=== PATIENT | female | born 1950 | race Caucasian/White ===

== ENCOUNTER 2019-05-14 17:08 | Inpatient (IN) ==
[2019-05-14 17:33] LABS: BASO# 0.02 X1000 (0.0-0.2); BASO% 0.3 % (0.0-0.8); EOS# 0.13 X1000 (0.0-0.7); EOS% 1.7 % (0.0-10.0); HEMOGLOBIN 12.8 g/dL (12.0-16.0); IMM GRAN# 0.02 X1000 (0.0-0.04); IMM GRAN% 0.3 % (0.0-0.5); LYMPH# 0.71 X1000 (1.2-3.4); LYMPH% 9.4 % (20.5-51.1); MCH 26.4 PG (27-31); MCHC 32.8 g/dL (33-37); MCV 80.6 FL (81-99); MONO# 0.55 X1000 (0.11-0.59); MONO% 7.3 % (1.7-9.3); PLT 490 X1000 (130-400); RBC 4.84 XMIL (4.2-5.4); RDW 14.9 % (11.5-14.5); WBC 7.53 X1000 (4.8-10.8)
[2019-05-14 17:36] LABS: URINE SOURCE CLEAN CATCH
[2019-05-14 17:37] LABS: BILIRUBIN URINE SMALL (NEGATIVE); BLOOD URINE NEGATIVE (NEGATIVE); COLOR YELLOW; GLUCOSE URINE NEGATIVE (NEGATIVE); KETONE URINE 40 mg/dL (NEGATIVE); LEUKOCYTES URINE MODERATE (NEGATIVE); NITRITE URINE NEGATIVE (NEGATIVE); PROTEIN URINE TRACE mg/dL (NEGATIVE); SP GRAVITY URINE 1.017; TURBIDITY URINE CLEAR (CLEAR); UROBILINOGEN URINE NORMAL (NORMAL)
[2019-05-14 17:38] LABS: UR EPITHELIAL CELLS <10 /HPF (<10); URINE BACTERIA NEGATIVE /HPF; URINE RBC <10 /HPF (<10)
[2019-05-14 17:45] LABS: AGAP 14; ALB/GLOB RATIO 1.2; ALBUMIN 3.8 g/dL (3.5-5.0); ALKALINE PHOSPHATASE 621 U/L (32-104); BUN 10 mg/dL (8-22); CHLORIDE 100 mmol/L (98-107); COSMO 278; CREATININE 0.8 mg/dL (0.5-0.9); ESTIMATED GFR > 60; GLUCOSE 124 mg/dL (70-104); GOT 206 U/L (10-30); GPT 404 U/L (10-36); LIPASE 27 U/L (13-60); POTASSIUM 4.1 mmol/L (3.5-5.1); SODIUM 139 mmol/L (136-145); TCO2 25 mmol/L (25-35); TOTAL BILIRUBIN 5.96 mg/dL (0.20-1.00); TOTAL PROTEIN 7.1 g/dL (6.3-8.3)
[2019-05-14] MEDS ORDERED: NS 1,000 ML IV ONE (18:19)
[2019-05-14] MEDS ORDERED: ZOFRAN IV ONE (18:20)
[2019-05-14] MEDS ORDERED: MORPHINE IV ONE (18:21)
--- NOTE | 2019-05-14 19:16 | Diag Imaging Result Doc PS360 ---
EXAM: CT ABD/PELVIS W/IV CONT ONLY INDICATION: abd pain TECHNIQUE: This exam was performed using automated exposure control, adjustment of mA or kV according to patient size, and/or use of iterative reconstruction technique. COMPARISON: No prior dedicated abdominal CT is available for comparison. FINDINGS: The gallbladder is partially contracted. However, the wall is enhancing and thickened and there is pericholecystic inflammatory stranding consistent with cholecystitis. In addition, there is enhancement and thickening of the rothman of the common bile duct and hepatic ducts with surrounding stranding consistent with cholangitis. There is intrahepatic and extrahepatic biliary dilatation. This biliary dilatation was also noted on a CTA chest dated 05/05/2019. This could be related to an occult distal obstruction. However, no discrete obstructing lesion can be identified. No pancreatic head mass is appreciated. There is no evidence of significant pancreatic ductal dilatation. Aside from the intrahepatic biliary dilatation, the liver is grossly unremarkable. The spleen, adrenal glands, kidneys, and urinary bladder are unremarkable. There are a couple of small left ovarian cysts that both measure between 1.5 and 2 cm. The reproductive tract is grossly unremarkable as imaged, otherwise. There is moderate uncomplicated diverticulosis coli. The appendix is normal. There is a very small hiatal hernia. The remainder of the GI tract is essentially unremarkable. IMPRESSION: 1.Wall thickening and enhancement involving the gallbladder as well as the common bile duct and hepatic ducts with surrounding inflammatory stranding consistent with cholecystitis and cholangitis. 2.Intrahepatic and extrahepatic biliary dilatation. Although no well-defined obstructing lesion is identified, a distal occult obstruction cannot be excluded. 3.Other incidental/nonacute findings detailed above. Electronically signed by Amador Whitehead 05/14/2019 7:14 PM
[2019-05-14] MEDS ORDERED: ZOSYN 3.375 GM in NS 50 ML IV ONE (20:06)
--- NOTE | 2019-05-14 20:32 | PROVIDER DOCUMENTATION ---
This chart was entered by Geraldine Galvan Scribe, acting as scribe for Janet Dawson MD. HPI-Abdominal Pain/GI Problem - General Chief Complaint: Abdominal Pain Stated Complaint: ABD PAIN Time Seen by Provider: 05/14/19 18:15 Source: patient Allergies/Adverse Reactions: Patient Allergies Allergy/AdvReac Type Severity Reaction Status Date / Time alendronate sodium AdvReac Unknown Verified 05/05/19 01:03 [From Fosamax] Home Medications: Home Medication List Medication Instructions Recorded Confirmed Last Taken Type NK [No Home Medications] 05/05/19 05/05/19 Unknown History - History of Present Illness-ABD Nature of Presenting Problems: 69 y/o female presents to ED with generalized abdominal pain, N/V, weight loss, loss of appetite, and skin discoloration onset 1 week ago. Pt reports jaundice- appearing skin changes. Pt is alert and oriented. Abdominal Pain Onset Location: reports: generalized abdomen Pain Radiation: reports: no radiation Quality of Pain: reports: aching Severity in ED: reports: mild Onset/Duration: reports: 1 week ago Timing: reports: still present Activities at Onset: reports: none Exposure to sick contacts?: No Modifying Factors: improves with: nothing Associated Symptoms: reports: loss of appetite, nausea, vomiting, other (generalized abdominal pain; weight loss; skin discoloration) Last BM: unsure Dark Stools Present?: reports: none noticed Rectal Bleeding: reports: none Rectal Pain: reports: none Similar Symptoms Previously?: No Recently seen or treated by another doctor?: No Review of Systems - Adult - REVIEW OF SYSTEMS - ADULT Constitutional: reports: weight loss. denies: chills, fever Eyes: reports: no symptoms reported Ears, Nose, Mouth & Throat: reports: no symptoms reported Cardiovascular: denies: chest pain, palpitations Respiratory: denies: cough, shortness of breath Gastrointestinal: reports: abdominal pain, nausea, poor appetite, vomiting. den ies: diarrhea Genitourinary: reports: no symptoms reported Musculoskeletal: denies: back pain, joint pain Integumentary: reports: other (skiin discoloration). denies: hives Neurological: denies: dizziness/vertigo, seizure Psychiatric: reports: no symptoms reported Endocrine: reports: no symptoms reported Hematologic/Lymphatic: reports: no symptoms reported Allergic/Immunologic: reports: no symptoms reported All Other Systems: Reviewed and Negative Past History - Adult - PAST MEDICAL HISTORY-ADULT Review of Records: reports: Old Records Reviewed, Nursing Assessment Review, Medications Reviewed Major Childhood Illnesses: reports: denies history Cardiovascular: reports: hyperlipidemia Obstetrical/Gynecological: reports: other (R breast cancer) - PRIOR SURGERIES/PROCEDURES Surgical/Procedure History: reports: , breast (R mastectomy) - IMMUNIZATION STATUS Childhood Immunizations: See Nurse Assessment Flu Vaccine: See Nurse Assessment - FAMILY HISTORY Family History: reviewed, not pertinent - SOCIAL HISTORY Smoking: non-smoker Substance Use: none/never Alcohol Use Frequency: never Living Situation: family Physical Exam-General - PHYSICAL EXAM-ADULT Initial Vital Signs Reviewed: Yes - CONSTITUTIONAL General Appearance: appears well, alert, no apparent distress - EYES Eyes: PERRL/EOMI, pink conjunctivae - HEAD, EARS, NOSE, MOUTH & THROAT HENMT: normocephalic/atraumatic, moist mucous membranes, normal ENT inspection - NECK Neck: non-tender, full range of motion - RESPIRATORY Respiratory: chest non-tender, lungs clear, normal breath sounds - CARDIOVASCULAR Cardiovascular: tachycardia - GASTROINTESTINAL (ABDOMEN) Abdominal Exam: normal bowel sounds, non tender, soft - MUSCULOSKELETAL Back Exam: normal inspection, no CVA tenderness, no vertebral tenderness Extremity: normal range of motion, non-tender, normal gait - SKIN Integumentary: warm/dry, other (skin discoloration). negative: normal color - NEUROLOGIC Neurologic: grossly normal - PSYCHIATRIC Psych/Mental Status: normal mood/affect, normal thought content, normal thought process, oriented x 3 Progress - PLAN OF CARE/RESULTS Progress/Plan/Lab Results: Vital Signs - 8 hr 05/14/19 17:13 Temperature 97.9 F Pulse Rate 113 H Respiratory Rate 18 Blood Pressure 119/58 O2 Sat by Pulse Oximetry 100 Laboratory Results - last 24 hr 05/14/19 05/14/19 05/14/19 17:22 17:22 17:26 WBC 7.53 RBC 4.84 Hgb 12.8 Hct 39.0 MCV 80.6 L MCH 26.4 L MCHC 32.8 L RDW Std Deviation 14.9 H Plt Count 490 H MPV 10.0 Immature Gran % (Auto) 0.3 Neut % (Auto) 81.0 H Lymph % (Auto) 9.4 L [place] % (Auto) 7.3 Eos % (Auto) 1.7 Baso % (Auto) 0.3 Immature Gran # (Auto) 0.02 Neut # (Auto) 6.10 Lymph # (Auto) 0.71 L [place] # (Auto) 0.55 Eos # (Auto) 0.13 Baso # (Auto) 0.02 Sodium 139 Potassium 4.1 Chloride 100 Carbon Dioxide 25 Anion Gap 14 BUN 10 Creatinine 0.8 Estimated GFR/1.73 m2 > 60 BUN/Creatinine Ratio 13 Glucose 124 H Calculated Osmolality 278 Calcium 9.0 Total Bilirubin 5.96 H AST 206 H ALT 404 H Alkaline Phosphatase 621 H Total Protein 7.1 Albumin 3.8 Globulin 3.3 Albumin/Globulin Ratio 1.2 Lipase 27 Urine Source CLEAN CATCH Urine Color YELLOW Urine Turbidity CLEAR Urine pH 6.0 Ur Specific [place] 1.017 Urine Protein TRACE A Ur Glucose (Stick) NEGATIVE Ur Ketones (Stick) 40 A Urine Blood NEGATIVE Urine Nitrite NEGATIVE Urine Bilirubin SMALL A Urobilinogen Dipstick NORMAL Urine Leukocytes MODERATE A Urine WBC (Auto) 10-20 A Urine RBC (Auto) <10 U Epithel Cells (Auto) <10 Urine Bacteria (Auto) NEGATIVE Orders Category Date Time Status NPO Diet 05/14/19 17:[address] ABD/PELVIS W/IV CONT ONLY [CT] Stat Exams 05/14/19 18:21 Ordered CBC WITH DIFF [HEME] Stat Lab 05/14/19 17:22 Completed COMPREHENSIVE METABOLIC PANEL [CHEM] Stat Lab 05/14/19 17:22 Completed LIPASE [CHEM] Stat Lab 05/14/19 17:22 Completed LIPASE [CHEM] Stat Lab 05/14/19 18:22 Ordered URINALYSIS [URINALYSIS] Stat Lab 05/14/19 17:26 Completed 0.9% Sodium Chloride Inj [Ns] 1,000 ml Med 05/14/19 18:19 Active IV 999 mls/hr Morphine Med 05/14/19 18:21 Discontinued 4 mg IV NOW ONE Ondansetron [Zofran] Med 05/14/19 18:20 Discontinued 4 mg IV NOW ONE Abd Pain/OB <20 weeks Stat Oth 05/14/19 17:21 Ordered Result Diagrams: 05/14/19 17:22 05/14/19 17:22 - CT/MRI 1 CT Study: Abdomen, Pelvis Impression: See EMR Report ([facility] - [address] [facility], [address], [place] [address] [facility] - [address] [place] [address] Department of Imaging Patient: KELLY CRUZ Date: 05/14/19#: [id number] : 1950DM Status: PRE ERAcct#: [id number] Age/Sex: 69/FRoom/Bed: Loc: ED Ordering Physician: Janet Dawson MD Family Physician: Alex Damon MD Reason for Procedure: abd pain Signed EXAM: CT ABD/PELVIS W/IV CONT ONLY INDICATION: abd pain TECHNIQUE: This exam was performed using automated exposure control, adjustment of mA or kV according to patient size, and/or use of iterative reconstruction technique. COMPARISON: No prior dedicated abdominal CT is available for comparison. FINDINGS: The gallbladder is partially contracted. However, the wall is enhancing and thickened and there is pericholecystic inflammatory stranding consistent with cholecystitis. In addition, there is enhancement and thickening of the rothman of the common bile duct and hepatic ducts with surrounding stranding consistent with cholangitis. There is intrahepatic and extrahepatic biliary dilatation. This biliary dilatation was also noted on a CTA chest dated 05/05/2019. This could be related to an occult distal obstruction. However, no discrete obstructing lesion can be identified. No pancreatic head mass is appreciated. There is no evidence of significant pancreatic ductal dilatation. Aside from the intrahepatic biliary dilatation, the liver is grossly unremarkable. The spleen, adrenal glands, kidneys, and urinary bladder are unremarkable. There are a couple of small left ovarian cysts that both measure between 1.5 and 2 cm. The reproductive tract is grossly unremarkable as imaged, otherwise. There is moderate uncomplicated diverticulosis coli. The appendix is normal. There is a very small hiatal hernia. The remainder of the GI tract is essentially unremarkable. IMPRESSION: 1.Wall thickening and enhancement involving the gallbladder as well as the common bile duct and hepatic ducts with surrounding inflammatory stranding cons istent with cholecystitis and cholangitis. 2.Intrahepatic and extrahepatic biliary dilatation. Although no well-defined obstructing lesion is identified, a distal occult obstruction cannot be excluded. 3.Other incidental/nonacute findings detailed above. Electronically signed by Amador Whitehead 05/14/2019 7:14 PM 05/14/[id number] Interpreting Physician: Amador Whitehead MD Dictated Date/Time: 05/14/19 190 cc: Janet Dawson MD; Alex Damon MD) - CONSULTS/PCP/HOSPITALIST Notification #1 *Consult/PCP/Hospitalist*: Dr. Tapia Time Discussed: 20:09 Reason/Comments: Cholecystitis Consult Disposition: Admit #2 Consult: Dr. Cruz Time Discussed: 20:21 Reason/Comments: Cholecystitis Consult Disposition: Admit Departure - Departure Date of Disposition Decision: 05/14/19 Time of Disposition Decision: 20:15 DIAGNOSIS: Cholecystitis Disposition: ADMITTED INPATIENT 09 Certified Medical Emergency: Emergent Condition: Stable Referrals and Follow-Ups: Alex Damon MD [Primary Care Provider] - - Critical Care Note This patient required my direct & personal management of CC.: No Attestation - Physician/ CAROL Attestation Patient care was provided by Advanced Practice Provider:: No The physician spent face to face time with patient:: Yes Advanced Practice Provider documentation review:: Supervising physician onsite and consulted in the evaluation and care of this patient. The physician did have a face to face encounter with the patient. This chart was documented by the indicated scribe, (Geraldine Galvan Scribe) and accurately reflects the services I performed and decisions made by me, Janet Dawson MD, as attested by the provider's signature.
--- NOTE | 2019-05-14 21:21 | GENERAL SURGERY CONSULTATION ---
DATE: 05/14/2019 REQUESTING PHYSICIAN: Emergency Department. REASON FOR CONSULTATION: Concerning cholangitis. HISTORY OF PRESENT ILLNESS: A 69-year-old female who presented to the emergency department with generalized abdominal pain, nausea, vomiting and some chest pain. She has been jaundiced for a week. She came to the emergency department and had a CT scan that showed the possibility of cholecystitis and cholangitis. At the time of my evaluation, she is really not complaining of much right upper quadrant pain. She never had pain like this before. She does report weight loss of 10 pounds in the last couple of weeks. PAST MEDICAL HISTORY: Includes history of breast cancer, hyperlipidemia. PAST SURGICAL HISTORY: Includes right mastectomy, , tonsillectomy. SOCIAL HISTORY: Nonsmoker. FAMILY HISTORY: Reviewed with the patient and noncontributory. ALLERGIES: Alendronate. HOME MEDICATIONS: None. REVIEW OF SYSTEMS: A full 10-point review of systems was obtained and negative except as specified in HPI. PHYSICAL EXAMINATION: Vital signs: The patient is currently afebrile. Her vital signs have been stable. On general exam, no acute distress. Alert, interactive, jaundiced female looks stated age.HEENT: Normocephalic, atraumatic. Pupils equal, round and reactive. Mucous membranes moist. Oropharynx benign. Neck supple. Positive scleral icterus. Cardiovascular: Regular rate and rhythm. Lungs grossly clear. Abdomen is soft. Really no tenderness to palpation. Some mild discomfort in the right upper quadrant, but no peritoneal signs. Extremities: Moves all extremities. Neurologic: Grossly intact. Skin positive for jaundice. Vascular: All extremities perfused. LABORATORY DATA: White blood count 7, hematocrit 39, platelet count 490,000. There is a slight left shift, with neutrophils being 81%. Bilirubin is 5.9. AST, ALT and alkaline phosphatase are all elevated. Lipase is normal. DIAGNOSTIC DATA: CT scan independently reviewed and radiology report reviewed. She does have a dilated, thickened gallbladder and common bile duct and hepatic, but no obvious obstruction. ASSESSMENT AND PLAN: A 69-year-old female with possible cholangitis. Possible cholangitis. At this time, the patient does have radiographic signs of cholangitis and laboratory signs of some degree of common bile duct obstruction, but she is not significantly tender. Given this dilation and the abnormal finding, we will likely need to consider MRI and magnetic resonance cholangiopancreatography in the morning. Given the fact she does not look toxic, would recommend just antibiotics for right now and monitoring her. If she seems to change at all clinically we will need to consider cholecystectomy, but at this time would like to try to get more imaging to figure out the etiology behind her common bile duct dilation, because on previous imaging it had been dilated. The patient is to be admitted by the hospitalist, and we will get Gastroenterology to see her. cc: Albaro Tapia MD
--- NOTE | 2019-05-14 22:34 | HISTORY AND PHYSICAL ---
PRIMARY CARE PHYSICIAN: Dr. Damon CHIEF COMPLAINT: Abdominal pain and jaundice. HISTORY OF PRESENT ILLNESS: Ms. Farah is a 69-year-old, female, who presents to the ER today and states that she has been having abdominal pain for greater than a week now. The patient did come to the ER a week ago, and tests were performed and everything was ruled out. The patient was given 2 L of fluid at that time. The patient went to see her heart doctor yesterday and was scheduled to have a stress test in a few weeks. The patient admits to having jaundice for a couple of days now, abdominal pain, and nausea. The patient states that she has had a greater than 10-pound weight loss in the past week and a half. She states that her urine has become a dark yellow color. She denies any problems with her bowels or any bloody stools. The patient states that she has not vomited anything, she is just nauseous. The patient does have a past medical history of breast cancer in 1999, with a right mastectomy. The patient does see Dr. Lomas routinely. The patient has had a colonoscopy and EGD by Dr. Birmingham in the past where polyps were found. The patient denies any chest pain at this time. Does state she has some abdominal pain. Upon palpation, it is in the mid epigastric region. Bowel sounds are present. The patient is noted to be a little jaundiced on assessment. Labs were obtained in the ER, and the patient was noted to have a bilirubin of 5.96, AST of 206, ALT of 404, and alkaline phosphatase of 621. Lipase was normal at 27. CT of the abdomen and pelvis was done in the ER, showed patient noted to have wall thickening and enhancement involving the gallbladder, as well as the common bile duct and hepatic ducts with surrounding inflammatory stranding consistent with cholecystitis and cholangitis. Intrahepatic and extrahepatic biliary dilation, although no well- defined obstructing lesion is identified. A distal occult obstruction cannot be excluded. Dr. Tapia did see the patient in the ER. PAST MEDICAL HISTORY: Hyperlipidemia, hemorrhoids, chronic constipation. She takes MiraLAX daily. Right breast cancer with mastectomy in 1999. The patient also stated that she had a colonoscopy and EGD by Dr. Birmingham and was noted to have a polyp. PAST SURGICAL HISTORY: Mastectomy to the right breast in 1999, section, tonsillectomy, colonoscopy and EGD done by Dr. Birmingham. FAMILY HISTORY: The patient states that her grandmother had colon cancer and from a stroke. She has a mother that is still living with no medical problems, a father that is and late in life. She has a couple of brothers and sisters, and they have no medical history noted. SOCIAL HISTORY: Patient lives in [place]. She is a retired data keyer. She denies any alcohol, smoking, or drug abuse. ALLERGIES: Alendronate sodium. MEDICATIONS: The patient states she does not take any medications, except [id number] vitamins and MiraLAX daily. LABORATORY AND DIAGNOSTICS: White blood cell count 7.53, hemoglobin 12.8, hematocrit 39, platelet count is 490,000. Sodium is 139, potassium is 4.1, BUN is 10, creatinine is 0.8, estimated GFR is greater than 60, glucose is 124, calcium is 9.0. Bilirubin is 5.96, AST is 206, ALT is 404, alkaline phosphatase is 621, lipase is 27. Urinalysis shows protein, trace ketones, small amount of bilirubin, moderate leukocytes, and positive white blood cell count [address] of the abdomen and pelvis shows wall thickening and enhancement involving the gallbladder, as well as the common bile duct and hepatic ducts with surrounding inflammatory stranding consistent with cholecystitis and cholangitis. Intrahepatic and extrahepatic biliary dilation, although no well- defined obstructive lesion identified. A distal occult obstruction cannot be excluded. REVIEW OF SYSTEMS: A 12-point review of systems has been obtained. All are negative, except what is stated above in the HPI. PHYSICAL EXAMINATION: VITAL SIGNS: Temperature 97.9 degrees, heart rate 113, blood pressure 119/58, respiratory rate 18, O2 saturation is 100% on room air. Weight 150 pounds, height 5 feet 1 inch. GENERAL: This is a 69-year-old, female, who is well nourished, well developed, with no acute distress at present time. She is lying in ER stretcher. HEENT: Atraumatic, normocephalic. Pupils equal, round, reactive. Jaundice noted to sclerae. Mucous membranes are moist. NECK: Supple. No lymphadenopathy. Trachea is midline. No JVD. No thyromegaly. No bruits. CARDIOVASCULAR: Regular rate and rhythm. No murmurs, gallops, or rubs appreciated. RESPIRATORY: Lung sounds are clear with equal chest excursion. Respirations are nonlabored. No accessory muscle usage. GASTROINTESTINAL: Abdomen is soft and tender to palpation. Bowel sounds are present x4. Abdomen is nondistended. NEUROLOGIC: Cranial nerves 2-12 intact. The patient is awake, alert, and oriented, able to follow all commands appropriately. MUSCULOSKELETAL: Full distal strength noted. No abnormalities. No deformities. EXTREMITIES: No clubbing, cyanosis, or edema. DP and PT pulses are present and palpable. SKIN: Warm, dry, and intact. The patient is jaundiced. There are no rashes or bruises noted. Turgor is good. No diaphoresis. ASSESSMENT AND PLAN: 1. Cholecystitis versus cholangitis. We will admit this patient to the medical floor. We will start patient on IV antibiotics of Zosyn. Dr. Tapia has recommended to possibly do an MRI in the morning on the patient. He was consulted. We will keep her NPO at present time. We will give her IV Zofran for nausea. We are going to start her on IV fluid hydration of normal saline at 100 mL an hour. We are going to repeat her labs in the morning. 2. Abdominal pain. This is likely related to her cholecystitis versus cholangitis. We will give her morphine IV p.r.n. for pain. Any other recommendations per Dr. Tapia. 3. Hyperlipidemia. Patient does not take any medications for her cholesterol at home. She uses [id number] vitamins for this. 4. Chronic constipation. The patient does not appear to be constipated at this time per CT scan and we are holding the patient NPO at this time. We are admitting this patient to the medical floor. We are starting her on IV fluid hydration. We are starting her on IV antibiotics. We are going to hold the patient NPO at this present time, treat her pain with morphine, treat her nausea with IV Zofran. Recheck labs in the a.m. Dictated by MAINE Coles for John Farah MD I have performed a face to face diagnostic evaluation. Labs/ Imaging- reviewed. Exam- chest- clear, Abd- RUQ tenderness. A/P- Acute cholecystitis- Admit, NPO, Pain control, IV ABX, General surgery consult. Dr. Farah. cc: MD Albaro Dillon MD Jay T. Pohl, MD MTDD
[2019-05-15] MEDS: ZOSYN 3.375 GM in NS 50 ML IV SCH ×4 (02:07→21:05)
[2019-05-15] MEDS: NS 1,000 ML IV SCH ×2 (02:07→14:22)
--- NOTE | 2019-05-15 06:35 | GENERAL SURGERY PROGRESS NOTE ---
DATE: 05/15/2019 SUBJECTIVE: Patient seems to be doing okay. No major issues. No real abdominal pain. OBJECTIVE: Vital Signs: Patient is currently afebrile. Her vital signs are stable. General: No acute distress. HEENT: Normocephalic, atraumatic. Pupils equal, round, reactive to light. Mucous membranes moist. Oropharynx benign. Neck: Supple. Trachea midline. Cardiovascular: Regular rate and rhythm. Lungs: Grossly clear. Abdomen: Soft, nontender at this time, nondistended. Extremities: Moves all extremities. Neurologic: Grossly intact. Skin: Positive for jaundice. Vascular: All extremities perfused. LABORATORY: Currently pending this morning. ASSESSMENT AND PLAN: A 69-year-old female with possible cholangitis. Possible cholangitis. At this time, will continue to manage her with antibiotics. Will need to consider consulting GI this morning, but will get an MRI with MRCP to evaluate her for any kind of obstruction. She is clinically doing okay, so maybe over the weekend get her gallbladder out, but will continue to monitor closely. cc: Albaro Tapia MD
[2019-05-15 06:39] LABS: INR 0.89; PROTIME 12.7 Seconds (11.0-16.0)
[2019-05-15 06:42] LABS: BASO# 0.04 X1000 (0.0-0.2); BASO% 0.8 % (0.0-0.8); EOS# 0.18 X1000 (0.0-0.7); EOS% 3.7 % (0.0-10.0); HEMATOCRIT 35.7 % (37.0-47.0); HEMOGLOBIN 11.5 g/dL (12.0-16.0); LYMPH# 0.59 X1000 (1.2-3.4); MCH 26.4 PG (27-31); MCHC 32.2 g/dL (33-37); MCV 81.9 FL (81-99); MONO# 0.61 X1000 (0.11-0.59); MONO% 12.4 % (1.7-9.3); MPV 10.4 FL (7.4-10.4); NEUT% 71.1 % (42.2-75.2); PLT 351 X1000 (130-400); RBC 4.36 XMIL (4.2-5.4); RDW 15.2 % (11.5-14.5); WBC 4.92 X1000 (4.8-10.8)
[2019-05-15 07:06] LABS: AGAP 15; ALB/GLOB RATIO 1.1; ALBUMIN 3.3 g/dL (3.5-5.0); ALKALINE PHOSPHATASE 553 U/L (32-104); BUN 8 mg/dL (8-22); CALCIUM 8.4 mg/dL (8.8-10.2); CHLORIDE 104 mmol/L (98-107); COSMO 279; CREATININE 0.8 mg/dL (0.5-0.9); ESTIMATED GFR > 60; GLUCOSE 96 mg/dL (70-104); GOT 185 U/L (10-30); GPT 357 U/L (10-36); POTASSIUM 3.9 mmol/L (3.5-5.1); SODIUM 141 mmol/L (136-145); TCO2 22 mmol/L (25-35); TOTAL BILIRUBIN 5.02 mg/dL (0.20-1.00); TOTAL PROTEIN 6.3 g/dL (6.3-8.3)
--- NOTE | 2019-05-15 09:00 | Diag Imaging Result Doc PS360 ---
EXAM: MRI MRCP (ABD W/O CONTRAST) 05/15/2019 HISTORY: common bile duct dilation TECHNIQUE: Axial T2, water, in and out of phase T1, radial T2 with MIPS, and coronal MRCP, coronal water and in and out of phase T1. COMMENT: There is a large gallstone in the gallbladder measuring 17 mm in diameter. The distal common bile duct is a maximum of 8 mm in diameter. The common hepatic duct is between eight and 9 mm in diameter. There is dilatation of the left hepatic duct to some extent to a maximum of 10 mm. The right hepatic duct measures over 7 mm distally. There is apparent narrowing of the distal right and left ducts and the proximal portion of the common hepatic duct in comparison with the intrahepatic ducts. There are apparent filling defects from the proximal common hepatic duct through the proximal portion of the common bile duct, which probably represent stones or stone debris. There is no evidence of stones or other obstructing lesions within the pancreatic duct. IMPRESSION: Cholelithiasis and complete distal cholelithiasis. The possibility of stenosis in the distal hepatic ducts and proximal common hepatic duct cannot be excluded. Electronically signed by Josr Munoz 05/15/2019 8:57 AM
[2019-05-15] MEDS: PRILOSEC PO SCH (09:20)
[2019-05-15] MEDS: MORPHINE IV PRN (11:03)
--- NOTE | 2019-05-15 12:20 | Diag Imaging Result Doc PS360 ---
EXAM: US ABDOMEN-COMPLETE 05/15/2019 HISTORY: abdominal pain TECHNIQUE: Abdominal ultrasound COMMENT: The pancreatic head and body are normal in appearance. The visualized portions of the aorta and inferior vena cava are within normal limits. The liver is unremarkable. The gallbladder contains a large stone measuring over 2 cm in size. There is no sonographic Worley sign. There is antegrade flow in the portal vein. The kidneys are without evidence of hydronephrosis or mass. The spleen is not enlarged. There is no evidence of biliary dilatation the common bile duct measuring 6 mm. There are no abnormal fluid collections. IMPRESSION: Cholelithiasis. Electronically signed by Josr Munoz 05/15/2019 12:18 PM
[2019-05-15 12:33] LABS: URINE SOURCE CLEAN CATCH
[2019-05-15 12:44] LABS: BILIRUBIN URINE SMALL (NEGATIVE); BLOOD URINE NEGATIVE (NEGATIVE); COLOR YELLOW; GLUCOSE URINE NEGATIVE (NEGATIVE); KETONE URINE 40 mg/dL (NEGATIVE); LEUKOCYTES URINE NEGATIVE (NEGATIVE); NITRITE URINE NEGATIVE (NEGATIVE); PROTEIN URINE NEGATIVE (NEGATIVE); SP GRAVITY URINE 1.016; TURBIDITY URINE CLEAR (CLEAR); UROBILINOGEN URINE NORMAL (NORMAL)
[2019-05-15 12:46] LABS: UR EPITHELIAL CELLS <10 /HPF (<10); URINE BACTERIA NEGATIVE /HPF; URINE RBC <10 /HPF (<10); URINE WBC <10 /HPF (<10)
--- NOTE | 2019-05-15 13:19 | PROGRESS NOTE ---
DATE: 05/15/2019 SUBJECTIVE: The patient is lying comfortably in bed. At this moment she is not complaining of headache. She is not complaining of abdominal pain. We did an MRCP that showed cholelithiasis, possibility of stenosis in the distal hepatic duct and proximal common hepatic duct cannot be excluded, I communicated with the Surgery Department, Dr. Tapia, which has recommended to get a consult with Gastroenterology Department. If everything is okay probably she will have a cholecystectomy done this weekend. OBJECTIVE: Vital Signs: Temperature 97.8 degrees, pulse 108, respiratory rate 12, blood pressure 139/59, oxygen saturation 100% on room air. HEENT: Head normocephalic and atraumatic. PERRLA. Neck: Supple. No JVD. No masses. Central trachea. Chest: Clear to auscultation. No wheezing. No rales. Abdomen: Soft, nontender and nondistended. No hepatosplenomegaly. Extremities: No edema, no clubbing, no cyanosis. Neurological: The patient is alert. She is oriented. She moves all 4 extremities. LABORATORY DATA: WBC 4.9, hemoglobin 11.5, hematocrit 35.7, platelets 351,000. Sodium 141, potassium 3.9, chloride 104, bicarbonate 22, BUN 8, creatinine 0.8, glucose 96, calcium 8.4, total bilirubin 5.02, AST 185, ALT 357, alkaline phosphatase 553, albumin 3.3. ASSESSMENT AND PLAN: 1. Cholelithiasis with possible stenosis of the distal hepatic ducts and proximal common hepatic duct. The Surgery Department already evaluated this patient, probably they will do a cholecystectomy during this weekend. Allso I communicated with Dr. Tapia and he agreed to request an evaluation by the Gastroenterology Department. I will wait for recommendations. For now we will continue with the same management, she seems to be feeling better. 2. Hyperlipidemia. Continue with the same management. 3. Chronic constipation. This patient does not appear to be constipated per the CT scan. She has been placed on a liquid diet. cc: Alex Bruno MD
--- NOTE | 2019-05-15 20:50 | GASTROENTEROLOGY CONSULTATION ---
DATE: 05/15/2019 REASON FOR CONSULTATION: Abnormal LFTs, choledocholithiasis. HISTORY OF PRESENT ILLNESS: Ms. Khushi Farah is a 69-year-old woman with past medical history of hyperlipidemia; right breast cancer, status post mastectomy and remote tamoxifen use in 1999. She presents with approximately 10 days of epigastric and periumbilical abdominal cramping and tightness. The patient reports developing pain in the periumbilical area that she thought may be related to either reflux or heart attack. She was seen in the ER on 05/04, and had a chest x-ray that was negative and a CT PE protocol study that showed no evidence of pulmonary emboli. There was some evidence of biliary dilation, and cholelithiasis and choledocholithiasis could not be ruled out. She was given IV fluids and discharged home, with a plan to follow up with her PCP. She was ruled out for ACS at the time. I note her LFTs there showed a bilirubin of 0.8, AST of 77, ALT of 87, alkaline phosphatase of 167 and a CK of 245. After being discharged from the ED, the patient reports continuing to have pain up to 6/10, worse with p.o. intake with associated nausea. Over the last couple of days, she noticed jaundice and scleral icterus, as well as dark urine. She has been avoiding eating, given the pain, and has lost 10 pounds in the last week. She denies having any fevers, chills, sweats, vomiting, diarrhea, constipation, bright red blood per rectum or melena. She does not drink alcohol and denies starting any new medications. No blood thinners or NSAIDs. No family history of liver disease. She denies having any similar symptoms in the past. REVIEW OF SYSTEMS: As per HPI, otherwise 12-point review of systems is negative. PAST MEDICAL HISTORY: Includes hyperlipidemia; history of right breast cancer, in remission. PAST SURGICAL HISTORY: Right mastectomy, , tonsillectomy. MEDICATIONS: [id number] vitamins and MiraLAX. ALLERGIES: Fosamax. SOCIAL HISTORY: No smoking, alcohol or drug use. FAMILY HISTORY: Daughter has gallstones. Maternal grandmother had colorectal cancer. PHYSICAL EXAMINATION: Vital signs: Temperature 98.1 degrees, heart rate of 74, respiratory rate 20, blood pressure 126/54, O2 saturation 99% on room air. Generally the patient is awake, alert and oriented, in no acute distress. She appears comfortable. She denies any pain currently.HEENT: Scleral icterus is present. Extraocular motor is intact. Moist mucous membranes. Neck supple. No JVD or lymphadenopathy. Cardiac: Regular rate and rhythm. No murmurs, rubs or gallops. Lungs clear to auscultation bilaterally. No wheezing. Abdomen is soft, nontender, nondistended. Normoactive bowel sounds. No rebound or guarding. Negative Worley sign. Extremities: No clubbing, cyanosis or edema. Skin: Mild jaundice. Neurologic: Nonfocal. LABORATORY DATA: White count of 4.92, hemoglobin 11.5, platelets of 351,000. INR of 0.89. Sodium 141, potassium 3.9, chloride 104, bicarbonate 22, anion gap of 15, BUN of 8, creatinine 0.8, glucose of 96, total protein of 5.02, AST of 185, ALT of 357, alkaline phosphatase of 553, total protein of 6.3, albumin of 3.3. Lipase yesterday was 27. LFTs are slightly improved from yesterday. UA shows 40 ketones, small bilirubin. DIAGNOSTIC DATA: CT of the abdomen and pelvis on 05/14/2019 shows wall thickening and enhancement involving the gallbladder as well as the common bile duct, and the hepatic duct with surrounding inflammatory stranding consistent with cholecystitis and cholangitis. Intrahepatic and extrahepatic biliary dilation, although no well-defined obstructing lesion is identified. A distal occult obstruction cannot be excluded. Ultrasound of the abdomen shows cholelithiasis with a 2 cm gallstone. Negative Worley sign sonographically. Common bile duct measures 6 mm. MRCP done today shows complete distal cholelithiasis. The possibility of stenosis in the distal hepatic ducts and proximal common hepatic duct could not be excluded. There are apparent filling defects from the proximal common hepatic duct through the proximal portion of the common bile duct, which probably represent stones or stone debris. There is no evidence of stones or obstructing lesions within the pancreatic duct. There is a large gallstone in the gallbladder measuring 17 mm in diameter. The distal common bile duct measures a maximum of 8 mm in diameter. The common hepatic duct is between 8 and 9 mm in diameter. There is dilation of the left hepatic duct to some extent, to a maximum of 10 mm. The right hepatic duct measures over 7 mm distally. There is apparent narrowing of the distal right and left ducts and the proximal portion of the common hepatic duct in comparison with the intrahepatic ducts. ASSESSMENT AND PLAN: Ms. Khushi Farah is a 69-year-old woman with no significant past medical history except for remote breast cancer, who presented with evidence of acute cholecystitis and cholangitis, with intrahepatic and extrahepatic biliary dilation. Of note, on reviewing the magnetic resonance cholangiopancreatography there was also some evidence of narrowing within the hepatic ducts on the left and right, and filling defect in the common hepatic duct to the common bile duct, concerning for possible stones and debris. The patient was seen by Surgery, who felt that she did not need urgent cholecystectomy at this time, given her benign abdominal exam and hemodynamic stability. Her white count is normal. She is on antibiotics with Zosyn. She is tolerating a clear liquid diet. She was started on a proton pump inhibitor as well and analgesics for pain control as well as antiemetics. I am concerned for the narrowing in the hepatic ducts distally, which raises a concern for possible primary sclerosing cholangitis; however, her alkaline phosphatase is high but was pretty low when she presented a week and half ago, and her liver function test pattern appears to be more of a mixed pattern, primarily cholestatic. The rapid progression does not appear to be consistent with primary sclerosing cholangitis and more likely choledocholithiasis. I will send off a CA19-9 to see if this is elevated. We discussed keeping her on a clear liquid diet through the weekend and planning for possible endoscopic retrograde cholangiopancreatography early next week with Dr. Sherman. In the meantime, we will keep her on antibiotics. We can probably advance her to a full liquid diet as tolerated, and monitor her closely over the weekend for any signs of cholangitis or development of acute cholecystitis. Other issues: She has some mild anemia that is borderline microcytic and mildly decreased bicarbonate. She is on normal saline 100 mL/h. I would continue to trend her CBC and liver function tests daily. There are no signs of pancreatitis. Thank you for this consult. We will follow with you. Please call with any questions or concerns.
[2019-05-16] MEDS: ZOSYN 3.375 GM in NS 50 ML IV SCH ×4 (03:41→20:36)
[2019-05-16] MEDS: ZOFRAN IV PRN (04:04)
[2019-05-16] MEDS: PRILOSEC PO SCH (06:00)
[2019-05-16 06:36] LABS: BASO# 0.03 X1000 (0.0-0.2); BASO% 0.7 % (0.0-0.8); EOS% 4.4 % (0.0-10.0); HEMATOCRIT 37.5 % (37.0-47.0); HEMOGLOBIN 11.8 g/dL (12.0-16.0); IMM GRAN# 0.04 X1000 (0.0-0.04); IMM GRAN% 0.9 % (0.0-0.5); LYMPH# 0.69 X1000 (1.2-3.4); LYMPH% 15.1 % (20.5-51.1); MCH 26.3 PG (27-31); MCHC 31.5 g/dL (33-37); MCV 83.7 FL (81-99); MONO# 0.31 X1000 (0.11-0.59); MONO% 6.8 % (1.7-9.3); MPV 10.2 FL (7.4-10.4); NEUT% 72.1 % (42.2-75.2); PLT 361 X1000 (130-400); RBC 4.48 XMIL (4.2-5.4); RDW 15.4 % (11.5-14.5); WBC 4.57 X1000 (4.8-10.8)
[2019-05-16 06:55] LABS: AGAP 13; ALB/GLOB RATIO 1.1; ALBUMIN 3.3 g/dL (3.5-5.0); ALKALINE PHOSPHATASE 521 U/L (32-104); BUN 7 mg/dL (8-22); CALCIUM 8.1 mg/dL (8.8-10.2); CHLORIDE 106 mmol/L (98-107); COSMO 282; CREATININE 0.8 mg/dL (0.5-0.9); ESTIMATED GFR > 60; GLUCOSE 123 mg/dL (70-104); GOT 144 U/L (10-30); GPT 328 U/L (10-36); POTASSIUM 3.4 mmol/L (3.5-5.1); SODIUM 142 mmol/L (136-145); TCO2 23 mmol/L (25-35); TOTAL BILIRUBIN 2.62 mg/dL (0.20-1.00); TOTAL PROTEIN 6.3 g/dL (6.3-8.3)
--- NOTE | 2019-05-16 13:32 | GENERAL SURGERY PROGRESS NOTE ---
DATE: 05/16/2019 SUBJECTIVE: The patient is doing well. She denies abdominal pain, nausea, or vomiting at this time. OBJECTIVE: Vital Signs: She is afebrile. Vital signs are stable. General: She is awake, alert, oriented x3. No acute distress. Gastrointestinal: Soft, nontender, nondistended. LABORATORY DATA: CBC reviewed and unremarkable. Complete metabolic profile reviewed and notable for total bilirubin 2.6, AST 144, ALT 328, alkaline phosphatase 521. ASSESSMENT AND PLAN: A 69-year-old female with elevated liver function tests and recent history of abdominal pain and nausea. Her imaging is concerning for biliary dilation and possibly stricture or stones. At this point, Dr. Stein informs me that an ERCP is planned early next week and she will likely require having her gallbladder removed pending the ERCP results. cc: Keenan Ma MD
[2019-05-16] MEDS: NS 1,000 ML IV SCH ×2 (13:58→15:05)
--- NOTE | 2019-05-16 15:07 | PROGRESS NOTE ---
DATE: 05/16/2019 SUBJECTIVE: This morning Ms. Farah refers to be doing a lot better. She has no abdominal pain, no nausea, no vomiting, and she thinks her skin yellowness is getting better. OBJECTIVE: Vital signs: Blood pressure is 110/42, pulse of 78, respirations 24, temperature 97.4 degrees. General exam: Ms. Farah is a 69-year-old female. She is in bed, no distress. HEENT: Mucosa is pink and moist. Anicteric. Acyanotic. Neck: Supple. Chest: Good air entry bilaterally. There were no crepitations, no rhonchi. Cardiovascular: Regular rate and rhythm. Abdomen: Soft, nontender. Bowel sounds present. Extremities: No pedal edema. SOAPSTONER: Patient is awake, alert, oriented. LABORATORY DATA: WBC is 4.57, hemoglobin is 11.8, platelet count of 361. Chemistry is also reviewed. Total bilirubin is down to 2.62, AST is 144, ALT is 338, alkaline phosphatase is 521. X-RAYS: The patient's imaging studies have all been reviewed. ASSESSMENT: 1. Cholelithiasis with possible biliary colic on presentation. 2. Acute cholecystitis with possible cholangitis. 3. Intra and extrahepatic biliary dilation of unclear etiology. Patient is pending an endoscopic retrograde cholangiopancreatography on Saturday. 4. Dyslipidemia. 5. Chronic constipation. PLAN: For now, we will continue with the current IV antibiotics, hydration, and be pending the ERCP on Saturday. The patient has been seen by Surgery and GI team as well. cc: Michael Nascimento MD
--- NOTE | 2019-05-16 23:53 | PROVIDER PROGRESS NOTE ---
Progress Note S: No acute overnight events. Patient tolerating regular diet. No abdominal pain, N/V/F, CP, SOB. O: Last Vital Signs Temp 97.5 F L 05/17/19 00:00 Pulse 71 05/17/19 00:00 Resp 16 05/17/19 00:00 BP 124/55 05/17/19 00:00 Pulse Ox 99 05/17/19 00:00 Height 5 ft 1 in Weight 151 lb 6 oz GEN: awake, alert, NAD HEENT: scleral icterus present, MMM NECK: supple, no JVD PULM: CTAB, no wheezing CV: RRR, no murmurs ABD: soft NT/ND, NABS, no rebound or guarding EXT: no cce NEURO: nonfocal LABS: 05/16/19 05/16/19 06:15 06:15 WBC 4.57 L Hgb 11.8 L Plt Count 361 Sodium 142 Potassium 3.4 L Chloride 106 Carbon Dioxide 23 L BUN 7 L Creatinine 0.8 Glucose 123 H Calcium 8.1 L Total Bilirubin 2.62 H AST 144 H ALT 328 H Alkaline Phosphatase 521 H Total Protein 6.3 Albumin 3.3 L ASSESSMENT AND PLAN: Ms. Khushi Farah is a 69-year-old woman with h/o remote breast cancer, who presented with jaundice and periumbilical pain found to have evidence of acute cholecystitis and cholangitis on imaging with MRCP showing intrahepatic and extrahepatic biliary dilation; narrowing within the hepatic ducts on the left and right; and filling defect in the common hepatic duct to the common bile duct concerning for possible stones and debris. She is on empiric zosyn. Her symptoms have resolved and LFTs are downtrending. Exam is benign other than jaundice. I am less concerned about PSC. # Probable proximal CBD choledocholithiasis: on zosyn; will discuss timing of possible ERCP with Dr. Sherman tomorrow # Abnormal LFTs: from above; trending # Acute cholecystitis on imaging: surgery following; on abx # Anemia: stable Will follow with you. Please call with questions
[2019-05-17] MEDS: ZOSYN 3.375 GM in NS 50 ML IV SCH ×4 (01:51→21:05)
[2019-05-17 06:44] LABS: INR 0.88; PROTIME 12.7 Seconds (11.0-16.0)
[2019-05-17 07:01] LABS: AGAP 14; ALB/GLOB RATIO 1.1; ALBUMIN 3.4 g/dL (3.5-5.0); ALKALINE PHOSPHATASE 449 U/L (32-104); BUN 5 mg/dL (8-22); CALCIUM 8.8 mg/dL (8.8-10.2); CHLORIDE 108 mmol/L (98-107); COSMO 287; CREATININE 0.9 mg/dL (0.5-0.9); ESTIMATED GFR > 60; GLUCOSE 113 mg/dL (70-104); GOT 148 U/L (10-30); GPT 322 U/L (10-36); POTASSIUM 3.7 mmol/L (3.5-5.1); SODIUM 145 mmol/L (136-145); TCO2 23 mmol/L (25-35); TOTAL BILIRUBIN 1.88 mg/dL (0.20-1.00); TOTAL PROTEIN 6.4 g/dL (6.3-8.3)
[2019-05-17] MEDS: PRILOSEC PO SCH (09:13)
[2019-05-17] MEDS: NS 1,000 ML IV SCH ×3 (09:14→23:27)
--- NOTE | 2019-05-17 13:09 | GENERAL SURGERY PROGRESS NOTE ---
DATE: 05/17/2019 SUBJECTIVE: The patient is doing okay today. No severe pain, nausea, or vomiting. OBJECTIVE: She is afebrile. Vital signs are stable.General: She is awake, alert, oriented x4. No acute distress. CV: Regular rate and rhythm. Respiratory: Bilateral breath sounds. No work of breathing. Gastrointestinal: Soft, nontender, nondistended. LABORATORY: Metabolic profile reviewed and notable for total bilirubin 1.9, AST 148, ALT 322, alkaline phosphatase 449. IMAGING: I went back and reviewed her abdominal pelvis CT scan, abdominal ultrasound, and MRCP. She is noted to have an enhancing, thickened gallbladder wall as well as dilated intra and extrahepatic bile ducts. There is some possible stricture in the hepatic ducts. There are also stones and filling defects within the gallbladder and bile ducts. This is concerning for acute cholecystitis, choledocholithiasis. ASSESSMENT AND PLAN: A 69-year-old female with cholelithiasis, choledocholithiasis, and possible acute cholecystitis. Overall, her liver function tests are trending down and Dr. Stein does not believe ERCP is mandatory at this point, but has recommended proceeding with cholecystectomy and cholangiogram first. I discussed this with her including the risks and benefits of laparoscopic, possible conversion to open procedure, the risks of bleeding, infection, injury to surrounding organs such as the bile duct or intestines, and other imponderables. She understands and agrees to proceed. We will see if we can work her in to the schedule today versus tomorrow with Dr. Tapia. cc: Keenan Ma MD
--- NOTE | 2019-05-17 13:23 | PROGRESS NOTE ---
DATE: 05/17/2019 SUBJECTIVE: Today Ms. Farah refers to be doing well. No new complaints. No abdominal pain. There is a plan for gallbladder removal today. OBJECTIVE: Vital signs: Blood pressure is 143/56, pulse of 80, respirations 20, temperature 98.9 degrees. General: Ms. Farah is a 69-year-old female. She is in bed. No distress. Mucosa is pink and moist. Anicteric. Acyanotic. Neck: Supple. Chest: Clear. Cardiovascular: Regular rate and rhythm. Abdomen: Soft, nontender. Bowel sounds present. Extremities: No pedal edema. MD PHYSICIAN DERMATOLOGIST: Patient is awake, alert, oriented. No focal neurological deficit. LABORATORY DATA: Chemistry is reviewed. LFTs continues to be trending down. ASSESSMENT: 1. Cholelithiasis with biliary colic on presentation, improved. 2. Acute cholecystitis with possible cholangitis. There is a plan for gallbladder removal hopefully today with intraoperative cholangiogram. 3. Intra and extrahepatic biliary dilation of unclear etiology. 4. Dyslipidemia. 5. Chronic constipation, improved. In general, I think Ms. Farah is doing a lot better. She has continued to be on IV antibiotics. She is afebrile. Liver function tests are trending down. Abdomen is benign. There is a plan for gallbladder removal today. We will follow up with the report. cc: Michael Nascimento MD MTDD
[2019-05-17] MEDS ORDERED: STERILE WATER INJ. ONE (17:28)
[2019-05-17] MEDS ORDERED: NORCURON ONE (17:28)
[2019-05-17] MEDS ORDERED: FENTANYL ONE (17:29)
[2019-05-17] MEDS ORDERED: XYLOCAINE-MPF 2% ONE (17:30)
[2019-05-17] MEDS ORDERED: QUELICIN (DOSE) ONE (17:30)
[2019-05-17] MEDS ORDERED: DIPRIVAN 1% ONE (17:30)
[2019-05-17] MEDS ORDERED: MARCAINE 0.25% PF/EPI 1:200,000 ONE (18:48)
[2019-05-17] MEDS ORDERED: SODIUM CHLORIDE 0.9% ONE (18:48)
[2019-05-17] MEDS ORDERED: LR 1,000 ML ONE (18:48)
[2019-05-17] MEDS ORDERED: NEOSTIGMINE ONE (19:36)
--- NOTE | 2019-05-17 19:49 | Diag Imaging Result Doc PS360 ---
EXAM: OPERATIVE CHOLANGIOGRAM 05/17/2019 HISTORY: cholecystitis TECHNIQUE: Intraoperative cholangiogram, two views COMMENT: There are filling defects in the distal common bile duct. There is dilatation of the common bile duct and intrahepatic ducts. There are stones or stone debris in the distal common bile duct. IMPRESSION: Retained debris and/or stones. Electronically signed by Josr Munoz 05/17/2019 7:47 PM
[2019-05-17] MEDS ORDERED: LOPRESSOR ONE (20:04)
[2019-05-17] MEDS ORDERED: APRESOLINE ONE (20:04)
[2019-05-17] MEDS: DILAUDID ONE ×2 (20:33→20:39)
[2019-05-17] MEDS ORDERED: NS 0 ML ONE (20:49)
[2019-05-17] MEDS ORDERED: NORCO-10 PO ONE (21:06)
--- NOTE | 2019-05-17 22:00 | PROVIDER PROGRESS NOTE ---
Progress Note S: No acute overnight events. Afebrile. No complaints. Patient underwent lap ortiz today with Dr. Ma. IOC positive for stones. O: Last Vital Signs Temp 98.0 F 05/17/19 19:53 Pulse 92 H 05/17/19 21:15 Resp 17 05/17/19 20:53 BP 130/62 05/17/19 21:15 Pulse Ox 95 05/17/19 21:15 Height 5 ft 1 in Weight 151 lb 6 oz GEN: awake, alert, NAD HEENT: scleral icterus present, MMM NECK: supple, no JVD PULM: CTAB, no wheezing CV: RRR, no murmurs ABD: soft NT/ND, NABS, no rebound or guarding EXT: no cce NEURO: nonfocal LABS: 05/17/19 05/17/19 06:07 06:07 INR 0.88 Sodium 145 Potassium 3.7 Chloride 108 H Carbon Dioxide 23 L BUN 5 L Creatinine 0.9 Total Bilirubin 1.88 H AST 148 H ALT 322 H Alkaline Phosphatase 449 H Total Protein 6.4 Albumin 3.4 L EXAM: OPERATIVE CHOLANGIOGRAM 05/17/2019 HISTORY: cholecystitis TECHNIQUE: Intraoperative cholangiogram, two views COMMENT: There are filling defects in the distal common bile duct. There is dilatation of the common bile duct and intrahepatic ducts. There are stones or stone debris in the distal common bile duct. IMPRESSION: Retained debris and/or stones. ASSESSMENT AND PLAN: Ms. Khushi Farah is a 69-year-old woman with h/o remote breast cancer, who presented with jaundice and periumbilical pain found to have evidence of acute cholecystitis and cholangitis on imaging with MRCP showing intrahepatic and extrahepatic biliary dilation; narrowing within the hepatic ducts on the left and right; and filling defect in the common hepatic duct to the common bile duct concerning for possible stones and debris. She is on empiric zosyn. POD #0 from lap ortiz. Plan for diagnostic and therapeutic ERCP tomorrow with Dr. Sherman. # Choledocholithiasis: on zosyn; NPO after MN for ERCP with Dr. Sherman tomorrow # Abnormal LFTs: from above; improving; continue to trend daily # Acute cholecystitis on imaging: surgery following; POD #0 for lap ortiz # Anemia: stable Will follow with you. Please call with questions
--- NOTE | 2019-05-17 22:07 | OPERATIVE NOTE ---
PROCEDURE DATE: 05/17/2019 PREOPERATIVE DIAGNOSIS: Acute cholecystitis and choledocholithiasis. POSTOPERATIVE DIAGNOSIS: Acute cholecystitis and choledocholithiasis. PROCEDURE: Laparoscopic cholecystectomy with operative cholangiogram. SURGEON: Keenan Ma MD. ANESTHESIA: General. ESTIMATED BLOOD LOSS: 10 mL. COMPLICATIONS: None apparent. SPECIMENS: Gallbladder. FINDINGS: The gallbladder appeared to be inflamed with a large stone in it. The cholangiogram revealed filling of the proximal hepatic ducts and common bile duct. They were dilated in the distal common bile duct. There were irregular filling defects which could represent stones or debris. There was some contrast passing through this area into the duodenum. TECHNIQUE: The patient was brought to the operating room and placed supine on the table. General anesthesia was induced. She was prepped and draped in usual sterile fashion. 0.25% Marcaine with epinephrine was used to anesthetize our incisions. An 11 mm incision was made above the umbilicus. The fascia was exposed and incised sharply. Entry into the peritoneal cavity was obtained under direct vision with the Optiview device. Pneumoperitoneum was established. The camera was inserted. There was no evidence of injury to underlying structures. She was placed in reverse Trendelenburg and left rotation. Three 5 mm incision ports were placed across the epigastric right upper quadrant under direct vision per usual routine. The dome of the gallbladder was grasped by the certified medical technician assistant with an Allis clamp and lifted up superiorly. The triangle of Calot was then dissected out with the [place] forceps and hook cautery until the critical view was obtained. The gallbladder liver junction was seen. There were only 2 structures entering the gallbladder the cystic duct and cystic artery. The artery was clipped proximally and distally and incised between with scissors. A clip was placed on the distal cystic duct. A ductotomy was made proximal to this with scissors. The 14-gauge Angiocath was passed through the right upper quadrant. The Taut cholangiogram catheter was passed through this into the cystic duct and held in place with a clip. The cholangiogram was performed with findings as noted above. The clip, catheter, and Angiocath were removed. Two clips were placed on the proximal cystic duct. It was divided distal to these with scissors. The gallbladder was removed from the liver bed using hook cautery obtaining hemostasis along the way. After it was removed I checked for any bleeding. There was no further bleeding. I suctioned out the old blood and irrigation. The gallbladder was then brought up into the umbilical port site after being placed into a EndoCatch bag. The ports were removed. The abdomen was desufflated. The skin and fascia at the umbilicus were incised a few more millimeters to allow removal of the gallbladder. I then closed the umbilical fascia with a running 0 Vicryl. The skin was closed with a running 4-0 subcuticular Monocryl and Steri-Strips. There were no apparent complications. She was awakened in stable condition and transferred to the recovery room. cc: Keenan Ma MD
[2019-05-17] MEDS: ZOFRAN IV PRN (22:16)
[2019-05-17] MEDS: MORPHINE IV PRN (23:27)
[2019-05-18] MEDS: ZOSYN 3.375 GM in NS 50 ML IV SCH ×4 (01:39→21:20)
[2019-05-18] MEDS: PRILOSEC PO SCH (06:58)
[2019-05-18] MEDS: NS 1,000 ML IV SCH ×2 (10:26→20:28)
[2019-05-18] MEDS ORDERED: LUBRIFRESH PM OPH OINTMENT ONE (14:02)
[2019-05-18] MEDS ORDERED: DIPRIVAN 1% ONE ×2 (14:24→15:33)
--- NOTE | 2019-05-18 14:30 | PROGRESS NOTE ---
DATE: 05/18/2019 SUBJECTIVE: This morning Ms. Farah refers to be doing okay. Denies any abdominal pain. She is pending ERCP by Dr. Sherman. OBJECTIVE: Vitals: Blood pressure is 144/60, pulse of 97, respiration is 15, temperature 99 degrees. General: Ms. Farah 69-year-old female she was sitting up on the potty chair no distress. Mucosa is pink and moist. Anicteric. Acyanotic. Physical exam is unremarkable except for mild icteric. Chest: Clear to auscultation. Extremities: No pedal edema. [employer]ION ORGANIZER: Patient was awake, alert, oriented. No focal neurological deficit. LABORATORY DATA: AST and ALT continues to be minimally elevated. Alkaline phosphatase and total bilirubin are trending down. Patient CA-19-9 is 33 which is less than the 35. Surgery report from yesterday shows a laparoscopic cholecystectomy with intraoperative cholangiogram was done. There was some irregular filling defects in the CBD. ASSESSMENT: 1. Cholelithiasis with biliary colic on presentation improved. 2. Acute cholecystitis with cholangitis. Patient is status post laparoscopic cholecystectomy with intraoperative cholangiogram which is abnormal so there is a plan for ERCP. 3. Intra and extrahepatic biliary dilation most likely due to distal common bile duct obstruction by stone. 4. Dyslipidemia. 5. Chronic constipation improved . So in general I think Ms. Farah is doing well. She tolerated laparoscopic cholecystectomy yesterday no complications. She is pending ERCP today. cc: Michael Nascimento MD MTDD
[2019-05-18] MEDS ORDERED: XYLOCAINE-MPF 2% ONE (15:38)
--- NOTE | 2019-05-18 16:08 | Diag Imaging Result Doc PS360 ---
ERCP-BILIARY AND PANCREATIC - 05/17/2019 INDICATION: Pancreatic head mass and Jaundice TECHNIQUE: The exam was performed by the patient's endoscopist. Four images were obtained. COMPARISON: Operative cholangiogram from earlier 05/17/2019 FINDINGS: Contrast injection of the common bile duct demonstrated filling defects distally and common bile duct dilation. It appears that a sweep was performed. It also appears that the filling defects were removed. A common bile duct stent was placed in good position. IMPRESSION: No complication. Electronically signed by Vincenzo Smith 05/18/2019 4:06 PM
--- NOTE | 2019-05-18 16:42 | OPERATIVE NOTE ---
PROCEDURE DATE : 05/18/2019 PROCEDURE: 1. Endoscopic retrograde cholangiopancreatography. 2. Endoscopic retrograde cholangiopancreatography with sphincterotomy. 3. Stone removal with basket. 4. Stent placement. PREOPERATIVE DIAGNOSIS: Common bile duct stone. POSTOPERATIVE DIAGNOSIS: Multiple small compact stones, compacted in the distal common bile duct, removed with basket and lavaged. DESCRIPTION OF PROCEDURE: After informed consent was obtained and adequate intravenous sedation by Anesthesia, the scope introduced into the esophagus, stomach, and duodenum. The ampulla appears normal. Cholangiogram revealed 2 large areas of stones/debris. At this point, wide sphincterotomy was done and they were removed with a basket. The rest of the common bile duct was lavaged with saline and then the bile duct is clear. At this point, a standard 10-Nepali 5 cm stent was deployed. The scope was withdrawn. The patient tolerated the procedure well without any immediate complications. I need to see her in the office in 2 to 3 weeks to remove the stent. cc: MD Keenan Lewis MD
[2019-05-18] MEDS: ZOFRAN IV PRN (16:55)
[2019-05-18] MEDS: MORPHINE IV PRN (16:55)
--- NOTE | 2019-05-18 19:06 | GENERAL SURGERY PROGRESS NOTE ---
DATE: 05/18/2019 SUBJECTIVE: The patient is doing okay today. She is sore, but no severe pain. No nausea or vomiting. OBJECTIVE: Vital Signs: She is afebrile. Vital signs are stable. General: She is awake, alert, and oriented x3. No acute distress. Gastrointestinal: Soft, mildly tender, nondistended. Incision is clean, dry, and intact. LABORATORY: Total bilirubin 1.88, AST 148, ALT 322, alkaline phosphatase 449. ASSESSMENT AND PLAN: A 69-year-old female postoperative day 1 laparoscopic cholecystectomy. She likely has residual common bile duct stones. We are planning endoscopic retrograde cholangiopancreatography today. cc: Keenan Ma MD
[2019-05-19] MEDS: MORPHINE IV PRN ×2 (00:16→04:09)
[2019-05-19] MEDS: NS 1,000 ML IV SCH ×2 (00:17→06:26)
[2019-05-19] MEDS ORDERED: CHLORASEPTIC SPRAY MT PRN (00:53)
[2019-05-19] MEDS: ZOSYN 3.375 GM in NS 50 ML IV SCH ×2 (03:30→09:57)
[2019-05-19] MEDS: PRILOSEC PO SCH ×2 (05:51→06:27)
[2019-05-19 06:15] LABS: ALB/GLOB RATIO 1.1; ALBUMIN 3.1 g/dL (3.5-5.0); DIRECT BILIRUBIN 0.6 mg/dL (0.00-0.20); TOTAL BILIRUBIN 1.46 mg/dL (0.20-1.00); TOTAL PROTEIN 5.9 g/dL (6.3-8.3)
[2019-05-19 11:21] VITALS: BP 125/55
--- NOTE | 2019-05-19 21:16 | DISCHARGE SUMMARY ---
ADMISSION DATE: 05/14/2019 DISCHARGE DATE: 05/19/2019 DISPOSITION: Home. FOLLOWUP: 1. Alex Norwood. 2. Dr. Britt. 3. Dr. Sherman. CONSULTATION: 1. Surgery was consulted. Patient was seen by Dr. Tapia followed up by Dr. Ma. 2. GI was consulted. Patient was seen by Dr. Stein and Dr. Barrett. INVASIVE PROCEDURES: 1. A laparoscopic cholecystectomy with operative cholangiogram was done by Dr. Ma. 2. ERCP with sphincterectomy, stone removal with basket and stent placement was done by Dr. Sherman. ADMISSION DIAGNOSIS: 1. Cholecystitis versus cholangitis. 2. Abdominal pain. 3. Hyperlipidemia. 4. Chronic constipation. DIAGNOSIS AT THE TIME OF DISCHARGE: 1. Cholelithiasis with biliary colic on presentation. 2. Acute cholecystitis with cholangitis. ASSESSMENT A TIME OF DISCHARGE: 1. Acute calculous cholecystitis. 2. Cholelithiasis with choledocholithiasis associated with cholangitis. Patient is status post ERCP with stone removal and stent placement. 3. Dyslipidemia. 4. Chronic constipation. DISCHARGE MEDICATIONS: 1. Pantoprazole 40 mg daily. 2. Levofloxacin 500 mg p.o. daily for 5 days. PRESENTING COMPLAIN: Is abdominal pain, jaundice. HISTORY OF PRESENTING COMPLAINT: Ms Farah is a 69-year-old female with history of dyslipidemia, chronic constipation, came to emergency department because of abdominal pain which has been going on for some time. On presentation she was found to be slightly jaundice. Lab work revealed obstructive pattern. The patient was admitted for further medical care. HOSPITAL COURSE: An initial CT scan of the abdomen and pelvic was done which revealed thickened and enhancement involving the gallbladder as well as the CBD. The patient was initially started on IV antibiotics for cholangitis. Surgery was consulted. Patient was seen initially by Dr. Tapia followed up by Dr. Ma. During the hospital course a decision was made for cholecystectomy with intraoperative cholangiogram which was done by Dr. Ma. Afterwards ERCP was also done by Dr. Sherman. Stones in the CBD were removed with basket and stent was deployed. Microbiology data was unremarkable. The patient was on IV Zosyn until the day of discharge. This has been transitioned to Levaquin for a total of 10 days antimicrobial therapy. This morning Ms. Farah is doing a lot better completely asymptomatic. Vitals, blood pressure is 125/55, pulse of 73, respiration is 16, temperature 98.1 degrees. Physical exam is unremarkable. She has been tolerating her diet. She is in stable condition for discharge. She is going to follow up with Dr. Tapia or Dr. Ma on outpatient base and also with Dr. Sherman for a later date for removal of the CBD stents. All the discharge instructions have been discussed with her. She voiced understanding. TIME SPENT: 35 minutes. cc: Michael Nascimento MD
== END 2019-05-19 13:51 | disposition home or self-care (01) | DRG 419 ==
LOC: ED 17:08 → 4N 17:09 → SUATTDRO 17:09 → 4N 05-17 18:11
PROVIDERS: ATTEND Internal Medicine
PROC: EN.ERCP (2019-05-18 15:22)
CPT/HCPCS: 74177; 74181; 74300; 74330; 76700; 80053; 80076; 81001; 83690; 83735; 85025; 85610; 86301; 88304; 94761; 96361; 96365; 96375; 99285; A9270; C1751; J0330; J0360; J1170; J2270; J2405; J2543; J3010; J7030; J7120; Q9966; Q9967